=== PATIENT | male | born 1975 | race Caucasian/White ===

== ENCOUNTER 2017-03-04 07:27 | Emergency (ER) | payer OTHER ==
[~2017-03-04] VITALS: Ht 177.8 cm; Wt 78.6 kg
[2017-03-04 07:34] VITALS: BP 120/59
--- NOTE | 2017-03-04 07:41 | NUR ---
PT TAKEN TO BED 2.
[2017-03-04] MEDS ORDERED: KETOROLAC 60 MG/2 ML VIAL IM ONE (08:05)
--- NOTE | 2017-03-04 08:11 | NUR ---
PATIENT IN BED 2, C/O X3 DAYS PRODUCTIVE COUGH, GENERAL BODY ACHES, INTERMITTENT FEVER. PATIENT STABLE, A&OX4,
[2017-03-04 08:45] VITALS: BP 124/85
--- NOTE | 2017-03-04 08:46 | NUR ---
Patient discharged with v/s stable. Written and verbal after care instructions given and explained. Patient alert, oriented and verbalized understanding of instructions. Ambulatory with steady gait. All questions addressed prior to discharge. ID band removed. Patient advised to follow up with PMD. Rx of MOTRIN AND PROMETHAZINE given. Patient educated on indication of medication including possible reaction and side effects. Opportunity to ask questions provided and answered.
== END 2017-03-04 08:46 | disposition home or self-care (01) ==
LOC: MED 07:27
DX: J06.9 Acute upper respiratory infection, unspecified (principal)
CPT/HCPCS: 96372; 99283; J1885

== ENCOUNTER 2018-10-21 07:38 | Day surgery (SDC) | payer OTHER ==
[~2018-10-21] VITALS: Ht 175.3 cm; Wt 78.0 kg
[2018-10-21] MEDS ORDERED: LIDOCAINE VISCOUS 2% 20 ML UDC ONE (08:54)
== END 2018-10-21 10:25 | disposition home or self-care (01) ==
LOC: MOR 07:38 → MTU 07:40 → MOR 10:25
PROVIDERS: ATTEND Internal Medicine Gastroenterology
DX: K29.70 Gastritis, unspecified, without bleeding (principal); K26.9 Duodenal ulcer, unspecified as acute or chronic, without hemorrhage or perforation; B96.81 Helicobacter pylori [H. pylori] as the cause of diseases classified elsewhere; Z87.891 Personal history of nicotine dependence
CPT/HCPCS: 36415; 86677

== ENCOUNTER 2020-06-02 03:16 | Emergency (ER) | payer OTHER ==
[~2020-06-02] VITALS: Ht 175.3 cm; Wt 78.5 kg
[2020-06-02 03:19] VITALS: BP 159/99
[2020-06-02] MEDS ORDERED: DICYCLOMINE HCL LIQUID 10 MG/5 ML UDC PO ONE (04:10)
[2020-06-02] MEDS ORDERED: ALUMINUM HYD/MAG/SIMETHICONE 30 ML UDC PO ONE (04:10)
[2020-06-02] MEDS ORDERED: LIDOCAINE VISCOUS 2% 20 ML UDC PO ONE (04:10)
[2020-06-02] MEDS ORDERED: NACL 0.9% 500 ML IV ONE (05:00)
[2020-06-02] MEDS ORDERED: PANTOPRAZOLE 40 MG INJ VIAL IVP ONE (05:00)
[2020-06-02] MEDS ORDERED: KETOROLAC 30 MG/ML VIAL IVP ONE (05:00)
[2020-06-02] MEDS ORDERED: ASPIRIN 81 MG TAB.CHEW PO ONE (05:00)
[2020-06-02 05:52] LABS: BASOPHILS % (AUTO) 0.3 % (0.0-2.0); EOSINOPHILS # (AUTO) 0.4 K/uL (0-0.4); EOSINOPHILS % (AUTO) 3.4 % (0.0-4.0); HEMOGLOBIN 15.5 g/dL (12.0-18.0); LYMPHOCYTES # (AUTO) 2.9 K/uL (2.0-11.5); LYMPHOCYTES % (AUTO) 25.6 % (20.5-51.1); MEAN CORPUSCULAR HEMOGLOBIN 28 pg (27-31); MEAN CORPUSCULAR HGB CONC 33 g/dL (33-37); MEAN CORPUSCULAR VOLUME 84.5 fL (80-94); MONOCYTES # (AUTO) 0.6 K/uL (0.8-1.0); MONOCYTES % (AUTO) 5.2 % (1.7-9.3); NEUTROPHILS # (AUTO) 7.4 K/uL (1.8-7.7); NEUTROPHILS % (AUTO) 65.5 % (42.2-75.2); PLATELET COUNT (AUTO) 290 K/uL (140-450); RED BLOOD CELL COUNT(AUTO) 5.55 MIL/uL (4.20-6.10); WHITE BLOOD COUNT (AUTO) 11.3 K/uL (4.8-10.8)
[2020-06-02 05:58] LABS: CARBON DIOXIDE 26.7 mmol/L (21-32); POTASSIUM 3.7 mmol/L (3.5-5.1)
[2020-06-02 06:04] LABS: ALBUMIN 3.9 g/dL (3.4-5.0); TOTAL BILIRUBIN 0.3 mg/dL (0.0-1.0)
[2020-06-02] MEDS ORDERED: PANT40EC PO (06:35)
[2020-06-02 07:07] VITALS: BP 159/99
== END 2020-06-02 07:07 | disposition home or self-care (01) ==
LOC: MED 03:16
DX: K29.70 Gastritis, unspecified, without bleeding (principal); R03.0 Elevated blood-pressure reading, without diagnosis of hypertension; F17.210 Nicotine dependence, cigarettes, uncomplicated
CPT/HCPCS: 36415; 71045; 80053; 84484; 85025; 93005; 96361; 96374; 96375; 99285; C9113; J1885; J7030

== ENCOUNTER 2022-03-04 18:39 | Emergency (ER) | payer OTHER ==
[~2022-03-04] VITALS: Ht 175.3 cm; Wt 72.6 kg
[~2022-03-04 18:39] MED LIST: PANT40EC PO
[2022-03-04 19:00] VITALS: BP 135/77
--- NOTE | 2022-03-04 19:00 | NUR ---
PT AMBULATED TO BED 9
--- NOTE | 2022-03-04 19:02 | NUR ---
EKG DONE AT BEDSIDE
--- NOTE | 2022-03-04 19:08 | NUR ---
IV ESTABLISHED TO LEFT AC WITH 20G
[2022-03-04 19:17] LABS: BASOPHILS % (AUTO) 0.4 % (0.0-2.0); EOSINOPHILS # (AUTO) 0.2 K/uL (0-0.4); EOSINOPHILS % (AUTO) 2.3 % (0.0-4.0); HEMATOCRIT 45.1 % (36-52); HEMOGLOBIN 14.8 g/dL (12.0-18.0); LYMPHOCYTES # (AUTO) 3.4 K/uL (2.0-11.5); LYMPHOCYTES % (AUTO) 38.2 % (20.5-51.1); MEAN CORPUSCULAR HEMOGLOBIN 28 pg (27-31); MEAN CORPUSCULAR HGB CONC 33 g/dL (33-37); MONOCYTES # (AUTO) 0.5 K/uL (0.8-1.0); MONOCYTES % (AUTO) 5.6 % (1.7-9.3); NEUTROPHILS # (AUTO) 4.8 K/uL (1.8-7.7); NEUTROPHILS % (AUTO) 53.5 % (42.2-75.2); PLATELET COUNT (AUTO) 268 K/uL (140-450); RED BLOOD CELL COUNT(AUTO) 5.36 MIL/uL (4.20-6.10); RED CELL DISTRIBUTION WIDTH 13.2 % (11.6-13.7)
--- NOTE | 2022-03-04 19:20 | NUR ---
Assumed care of patient. VSS. Cardiac monitoring in place. Sitting in bed with no s/s distress.
[2022-03-04 19:40] LABS: ALBUMIN 3.7 g/dL (3.4-5.0); ANION GAP 12.1 (8-16); CARBON DIOXIDE 27.9 mmol/L (21-32); CREATININE 1.3 mg/dL (0.6-1.3); TOTAL BILIRUBIN 0.2 mg/dL (0.0-1.0)
--- NOTE | 2022-03-04 20:45 | NUR ---
Patient being evaluated by physician at bedside.
--- NOTE | 2022-03-04 22:22 | NUR ---
d/c with VSS. d/c education given. opportunity toa sk qeustions given and answered. no rx given. IV site removed, bleeding controlled with sterile gauze and reinforced with tape.
[2022-03-04 22:23] VITALS: BP 131/69
== END 2022-03-04 22:22 | disposition home or self-care (01) ==
LOC: MED 18:39
DX: R07.89 Other chest pain (principal); E11.9 Type 2 diabetes mellitus without complications; F17.210 Nicotine dependence, cigarettes, uncomplicated; Z79.899 Other long term (current) drug therapy
CPT/HCPCS: 36415; 71045; 80053; 83880; 84484; 85025; 93005; 99285; Q0092

== ENCOUNTER 2023-04-12 14:33 | Emergency (ER) | payer OTHER ==
[~2023-04-12] VITALS: Ht 177.8 cm; Wt 77.1 kg
[2023-04-12 14:44] VITALS: BP 141/90; PULSE 114; RESP 17; TEMP 97.1; O2SAT 97
[2023-04-12] MEDS ORDERED: LID5T TP (15:40)
[2023-04-12] MEDS ORDERED: ACET-8905 PO (15:40)
[2023-04-12] MEDS ORDERED: KETOROLAC 30 MG/ML VIAL IM ONE (15:40)
[2023-04-12 16:04] VITALS: BP 141/90; PULSE 106; RESP 17; TEMP 97.1; O2SAT 97
== END 2023-04-12 16:04 | disposition home or self-care (01) ==
LOC: MED 14:33
DX: M25.511 Pain in right shoulder (principal); E11.9 Type 2 diabetes mellitus without complications; Z79.899 Other long term (current) drug therapy
CPT/HCPCS: 73030; 96372; 99283; J1885

== ENCOUNTER 2023-09-23 16:51 | Emergency (ER) | payer OTHER ==
[~2023-09-23] VITALS: Ht 175.3 cm; Wt 74.8 kg
[~2023-09-23 16:51] MED LIST changes: +ACET-8905 PO; +LID5T TP
[2023-09-23 17:00] VITALS: BP 145/103; PULSE 110; RESP 16; TEMP 98.2; O2SAT 98
[2023-09-23] MEDS ORDERED: TOMOMETER 1 DEV DEV MC ONE (17:26)
[2023-09-23 17:44] LABS: BASOPHILS % (AUTO) 0.3 % (0.0-2.0); EOSINOPHILS # (AUTO) 0.2 K/uL (0-0.4); EOSINOPHILS % (AUTO) 2.5 % (0.0-4.0); HEMATOCRIT 47.4 % (36-52); HEMOGLOBIN 15.8 g/dL (12.0-18.0); LYMPHOCYTES # (AUTO) 3.4 K/uL (2.0-11.5); LYMPHOCYTES % (AUTO) 34.7 % (20.5-51.1); MEAN CORPUSCULAR HEMOGLOBIN 29 pg (27-31); MEAN CORPUSCULAR HGB CONC 33 g/dL (33-37); MEAN CORPUSCULAR VOLUME 85.6 fL (80-94); MONOCYTES # (AUTO) 0.6 K/uL (0.8-1.0); NEUTROPHILS # (AUTO) 5.5 K/uL (1.8-7.7); NEUTROPHILS % (AUTO) 56.5 % (42.2-75.2); PLATELET COUNT (AUTO) 257 K/uL (140-450); RED BLOOD CELL COUNT(AUTO) 5.54 MIL/uL (4.20-6.10); RED CELL DISTRIBUTION WIDTH 13.2 % (11.6-13.7); WHITE BLOOD COUNT (AUTO) 9.8 K/uL (4.8-10.8)
[2023-09-23 18:05] LABS: INR 0.92 (0.8-1.2); PARTIAL THROMBOPLASTIN TIME 27.1 secs (22-35.6); PROTHROMBIN TIME 9.7 secs (10.8-13.4)
[2023-09-23 18:11] LABS: ANION GAP 12.2 (8-16); CALCIUM 9.1 mg/dL (8.5-10.1); CARBON DIOXIDE 26.4 mmol/L (21-32); CREATININE 0.8 mg/dL (0.6-1.3); POTASSIUM 3.6 mmol/L (3.5-5.1)
[2023-09-23 18:14] LABS: D-DIMER < 100 ng/ml (0-400)
[2023-09-23 18:49] VITALS: BP 119/83; PULSE 75; RESP 14; O2SAT 96
[2023-09-23] MEDS ORDERED: IBUP-2213 PO (19:41)
== END 2023-09-23 20:10 | disposition home or self-care (01) ==
LOC: MED 16:51
DX: R07.89 Other chest pain (principal); F17.200 Nicotine dependence, unspecified, uncomplicated; E11.9 Type 2 diabetes mellitus without complications; Z79.1 Long term (current) use of non-steroidal anti-inflammatories (NSAID); Z79.899 Other long term (current) drug therapy
CPT/HCPCS: 36415; 71045; 80048; 83880; 84484; 85025; 85379; 85610; 85730; 93005; 99285